=== PATIENT | male | born 2000 | race Caucasian/White ===

== ENCOUNTER 2022-06-28 19:05 | Emergency (ER) | payer MEDICAID ==
[~2022-06-28] VITALS: Ht 170.2 cm; Wt 63.5 kg
[2022-06-28 19:11] VITALS: BP_SYST 112
--- NOTE | 2022-06-28 19:16 | NUR ---
[facility] Side rails up. Report given to Ronny BARBOUR(franky).
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
--- NOTE | 2022-06-28 20:00 | NUR ---
MD Amaya at bedside
--- NOTE | 2022-06-28 20:20 | NUR ---
Pt to Xray
--- NOTE | 2022-06-28 20:30 | NUR ---
Pt back from xray.
[2022-06-28 20:54] VITALS: BP_SYST 116
--- NOTE | 2022-06-28 20:54 | NUR ---
Patient given written and verbal discharge instructions and verbalizes understanding. ER MD discussed with patient the results and treatment provided. Patient in stable condition. ID arm band removed. Patient educated on pain management and to follow up with PMD. Pain Scale 2/10. Opportunity for questions provided and answered. Medication side effect fact sheet provided.
== END 2022-06-28 20:54 | disposition home or self-care (01) ==
LOC: SED 19:05
DX: S93.401A Sprain of unspecified ligament of right ankle, initial encounter (principal); S80.211A Abrasion, right knee, initial encounter; M25.561 Pain in right knee; M25.571 Pain in right ankle and joints of right foot; Z79.899 Other long term (current) drug therapy; Y03.0XXA Assault by being hit or run over by motor vehicle, initial encounter; Y93.89 Activity, other specified; Y92.89 Other specified places as the place of occurrence of the external cause; Y99.8 Other external cause status
CPT/HCPCS: 73564; 99284